=== PATIENT | male | born 1995 | race African-American/Black ===

== ENCOUNTER 2020-04-07 01:35 | Emergency (ER) | payer SELFPAY ==
[2020-04-07] MEDS ORDERED: Lidocaine 1% PF 5 ML VIAL ONE (02:27)
[2020-04-07] MEDS ORDERED: Azithromycin 250 MG TAB ONE (02:27)
[2020-04-07] MEDS ORDERED: cefTRIAXone\\ROCEPHIN 250 MG VIAL ONE (02:27)
[2020-04-07 02:43] LABS: Bacteria/HPF None Seen HPF (None Seen); Bilirubin Negative (Negative); Blood, Urine 1+ (Negative); Clarity Turbid (Clear); Glucose, Urine (Dipstick) Normal (Negative); Leukocyte 500 Leu/uL (Negative); Nitrite Negative (Negative); Protein, Urine (Dipstick) 10 mg/dL (Neg-Trace); Squamous Epithelial None Seen HPF (0-3); Urobilinogen Normal mg/dL (Less than 2); WBC/HPF Greater than 50 HPF (0-3)
[2020-04-09 21:43] LABS: Chlam.trachomatis by PCR,Urine Inconclusive (NotDetected)
== END 2020-04-07 03:06 | disposition home or self-care (01) ==
LOC: ERS 01:35
DX: N39.0 Urinary tract infection, site not specified (principal); F17.210 Nicotine dependence, cigarettes, uncomplicated
CPT/HCPCS: 81003; 81015; 87491; 87591; 96372; 99283; J0696; J2001